=== PATIENT | female | born 1965 | race African-American/Black ===

== ENCOUNTER 2019-01-17 09:35 | Emergency (ER) | payer SELFPAY ==
[2019-01-17] MEDS ORDERED: NORMAL SALINE 1000 ML 1,000 ML IV ONE (09:53)
[2019-01-17] MEDS ORDERED: MORPHINE SULFATE 10 MG/ML INJ IV ONE (09:53)
[2019-01-17] MEDS ORDERED: ONDANSETRON HCL INJ/PF 4 MG/2 ML SDV IV ONE (09:53)
--- NOTE | 2019-01-17 09:54 | ER Document Report ---
ED Medical Screen (RME) - General Chief Complaint: Abdominal Pain Stated Complaint: ABNOMINAL PAIN Time Seen by Provider: 01/17/19 09:50 Mode of Arrival: Ambulatory Information source: Patient Notes: Patient is a 54-year-old female presenting to the emergency department with 3- day history of left-sided abdominal pain, fevers and nausea. Patient denies any diarrhea or dysuria. Patient has not had symptoms similar to this in the past. Exam: Tenderness to palpation to left side of abdomen and both left upper and left lower quadrants. I have greeted and performed a rapid initial assessment of this patient. A comprehensive ED assessment and evaluation of the patient, analysis of test results and completion of the medical decision making process will be conducted by additional ED providers. I have specifically instructed the patient or family members with the patient to immediately return to any nursing staff should anything change in the patient's condition or with their chief complaint. This medical record was dictated with voice recognizing software. There may be grammatical, syntax errors that are unintended. - Related Data Allergies/Adverse Reactions: Penicillins Allergy (Verified 01/17/19 09:38) Physical Exam - Vital signs Vitals: Temp Pulse Resp BP Pulse Ox 101.9 F H 114 H 20 139/86 H 97 01/17/19 09:40 01/17/19 09:40 01/17/19 09:40 01/17/19 09:40 01/17/19 09:40 Course - Vital Signs Vital signs: Temp Pulse Resp BP Pulse Ox 101.9 F H 114 H 20 139/86 H 97 01/17/19 09:40 01/17/19 09:40 01/17/19 09:40 01/17/19 09:40 01/17/19 09:40
[2019-01-17] MEDS ORDERED: KETOROLAC TROMETHAMINE INJ/PF 30 MG/1 ML SDV IV ONE (10:26)
[2019-01-17 10:32] LABS: ABSOLUTE LYMPHOCYTES (AUTO) 1.5 10^3/uL (0.5-4.7); ABSOLUTE MONOCYTES (AUTO) 1.4 10^3/uL (0.1-1.4); ABSOLUTE NEUT (AUTO) 15.8 10^3/uL (1.7-8.2); BASOPHILS % (AUTO) 0.2 % (0-2); EOSINOPHILS % (AUTO) 0.1 % (0-6); HEMATOCRIT 38.7 % (36.0-47.0); HEMOGLOBIN 12.6 g/dL (12.0-15.5); LYMPHOCYTES % (AUTO) 7.9 % (13-45); MEAN CORPUSCULAR HEMOGLOBIN 26.7 pg (27.0-33.4); MEAN CORPUSCULAR HGB CONC 32.5 g/dL (32.0-36.0); MEAN CORPUSCULAR VOLUME 82 fl (80-97); MONOCYTES % (AUTO) 7.2 % (3-13); PLATELET COUNT 255 10^3/uL (150-450); RED CELL DISTRIBUTION WIDTH 13.8 % (11.5-14.0); SEGMENTED NEUTROPHILS % (AUTO) 84.6 % (42-78); TOTAL CELLS COUNTED % (AUTO) 100 %; WHITE BLOOD COUNT 18.7 10^3/uL (4.0-10.5)
--- NOTE | 2019-01-17 10:59 | ER Document Report ---
ED General - General Chief Complaint: Abdominal Pain Stated Complaint: ABNOMINAL PAIN Time Seen by Provider: 01/17/19 09:50 Mode of Arrival: Ambulatory - HPI Notes: Patient presents with fever and left lower quadrant nonradiating abdominal pain since Sunday of this week. No known medical problems does not take any medications on a daily basis. Has been intermittent nausea but no vomiting or diarrhea with normal bowel movements. No abnormal vaginal discharge or concerns for vaginal infection. Has not ever had the symptoms in the past. - Related Data Allergies/Adverse Reactions: Penicillins Allergy (Verified 01/17/19 09:38) Past Medical History - General Information source: Patient - Social History Smoking Status: Never Smoker Family History: None Patient has suicidal ideation: No Patient has homicidal ideation: No Past Surgical History: Reports: Hx Appendectomy Review of Systems - Review of Systems Constitutional: No symptoms reported EENT: No symptoms reported Cardiovascular: No symptoms reported Respiratory: No symptoms reported Gastrointestinal: See HPI Genitourinary: No symptoms reported Female Genitourinary: No symptoms reported Musculoskeletal: No symptoms reported Skin: No symptoms reported Hematologic/Lymphatic: No symptoms reported Neurological/Psychological: No symptoms reported Physical Exam - Vital signs Vitals: Temp Pulse Resp BP Pulse Ox 101.9 F H 114 H 20 139/86 H 97 01/17/19 09:40 01/17/19 09:40 01/17/19 09:40 01/17/19 09:40 01/17/19 09:40 - General General appearance: Appears well, Alert, Other - Fever - HEENT Head: Normocephalic, Atraumatic - Respiratory Respiratory status: No respiratory distress, Tripod position Breath sounds: Normal - Cardiovascular Rhythm: Regular, Tachycardia Heart sounds: Normal auscultation Murmur: No - Abdominal Inspection: Normal Distension: No distension Bowel sounds: Normal Tenderness: Other - Tenderness to palpation of left lower quadrant - Back Back: Normal, Nontender - Extremities General upper extremity: Normal strength General lower extremity: Normal strength Course - Re-evaluation Re-evalutation: 01/17/19 12:25 CT shows evidence of pyelonephritis. Patient well-appearing with normal lactic acid. She does have a serum leukocytosis. Zosyn was hung in the emergency department prior to CT scan. Patient is tolerating p.o. has not had any vomiting will provide nausea medication as well as 14 days of Bactrim. Her urine culture to ensure proper sensitivities. Strict return precautions provided the patient in regards to if she were to fail outpatient therapy to return immediately to the emergency department. Patient verbalized and agrees with plan - Vital Signs Vital signs: Temp Pulse Resp BP Pulse Ox 98.7 F 88 18 112/72 93 01/17/19 12:39 01/17/19 12:39 01/17/19 12:39 01/17/19 12:39 01/17/19 12:39 - Laboratory Result Diagrams: 01/17/19 10:15 01/17/19 10:15 Laboratory results interpreted by me: 01/17/19 01/17/19 01/17/19 10:15 10:15 10:47 WBC 18.7 H MCH 26.7 L Lymph % (Auto) 7.9 L Absolute Neuts (auto) 15.8 H Seg Neutrophils % 84.6 H Sodium 136.2 L Chloride 96 L Est GFR (MDRD) Non-Af 53 L Glucose 125 H Total Bilirubin 1.9 H Direct Bilirubin 0.5 H AST 103 H Alkaline Phosphatase 162 H Urine Protein 100 H Urine Ketones TRACE H Urine Blood LARGE H Urine Nitrite POSITIVE H Ur Leukocyte Esterase LARGE H Discharge - Discharge Clinical Impression: Pyelonephritis Condition: Good Disposition: HOME, SELF-CARE Instructions: Pyelonephritis (OM), Trimethoprim-Sulfa (OM) Prescriptions: Sulfamethoxazole/Trimethoprim [Bactrim Ds Tablet] 1 each PO BID #28 tablet Ondansetron [Zofran Odt 4 mg Tablet] 1 tab PO ASDIR PRN #15 tab.rapdis PRN Reason: For Nausea/Vomiting
[2019-01-17 11:00] LABS: ALBUMIN 4.4 g/dL (3.5-5.0); ALKALINE PHOSPHATASE 162 U/L (38-126); ANION GAP 12 (5-19); ASPARTATE AMINO TRANSFERASE 103 U/L (14-36); BILIRUBIN,DIRECT 0.5 mg/dL (0.0-0.4); BILIRUBIN,TOTAL 1.9 mg/dL (0.2-1.3); BLOOD UREA NITROGEN 12 mg/dL (7-20); CALCIUM 9.5 mg/dL (8.4-10.2); CARBON DIOXIDE 28 mmol/L (22-30); CHLORIDE 96 mmol/L (98-107); GLUCOSE 125 mg/dL (75-110); POTASSIUM 4.4 mmol/L (3.6-5.0); TOTAL PROTEIN 7.8 g/dL (6.3-8.2)
[2019-01-17] MEDS ORDERED: PIPERACILLIN/TAZOBACTAM 4.5 GM VIAL IV ONE (11:02)
[2019-01-17 11:18] LABS: APPEARANCE,URINE SLIGHTLY-CLOUDY; BILIRUBIN,URINE NEGATIVE (NEGATIVE); COLOR,URINE YELLOW; GLUCOSE, URINE NEGATIVE (NEGATIVE); KETONES,URINE TRACE mg/dL (NEGATIVE); LEUKOCYTE ESTERASE,URINE LARGE (NEGATIVE); NITRITE,URINE POSITIVE (NEGATIVE); PROTEIN,URINE 100 mg/dL (NEGATIVE); URINE SPECIFIC GRAVITY 1.009; UROBILINOGEN,URINE NEGATIVE mg/dL (<2.0)
--- NOTE | 2019-01-17 11:43 | RADIOLOGY REPORT (SQ) ---
EXAM DESCRIPTION: CT ABD/PELVIS WITH IV ONLY COMPLETED DATE/TIME: 01/17/2019 11:31 am REASON FOR STUDY: L quad pain COMPARISON: None. TECHNIQUE: CT scan of the abdomen and pelvis performed using helical scanning technique with dynamic intravenous contrast injection. No oral contrast. Images reviewed with lung, soft tissue, and bone windows. Reconstructed coronal and sagittal MPR images reviewed. Delayed images for evaluation of the urinary system also acquired. All images stored on PACS. All CT scanners at this facility use dose modulation, iterative reconstruction, and/or weight based d osing when appropriate to reduce radiation dose to as low as reasonably achievable (ALARA). [facility]: Dose Right [facility]: CareDose [facility]: Dose Right [facility]: Teradose 4D [facility]: [employer] CONTRAST TYPE AND DOSE: contrast/concentration: Isovue 350.00 mg/ml; Total Contrast Delivered: 71.0 ml; Total Saline Delivered: 66.0 ml RENAL FUNCTION: BUN 12, creatinine 1.07 RADIATION DOSE: CT Rad equipment meets quality standard of care and radiation dose reduction techniq ues were employed. CTDIvol: 6.0 - 7.9 mGy. DLP: 686 mGy-cm.. LIMITATIONS: None. FINDINGS: LOWER CHEST: No significant findings. No nodules or infiltrates. LIVER: Normal size. No masses. No dilated ducts. SPLEEN: Normal size. No focal lesions. PANCREAS: No masses. No significant calcifications. No adjacent inflammation or peripancreatic fluid collections. Pancreatic duct not dilated. GALLBLADDER: No identified stones by CT criteria. No inflammatory changes to suggest cholecystitis. ADRENAL GLANDS: No significant masses or asymmetry. RIGHT KIDNEY AND URETER: No solid masses. No significant calcifications. No hydronephrosis or hyd roureter. LEFT KIDNEY AND URETER: No solid masses. There is heterogeneous enhancement and attenuation with a f ocal rounded area of decreased attenuation on both the immediate and delayed images. This may repres ent focal pyelonephritis. No significant calcifications. No hydronephrosis or hydroureter. AORTA AND VESSELS: No aneurysm. No dissection. Renal arteries, SMA, celiac without stenosis. RETROPERITONEUM: No retroperitoneal adenopathy, hemorrhage or masses. BOWEL AND PERITONEAL CAVITY: No masses or inflammatory changes. No free fluid or peritoneal masses. APPENDIX: Surgically absent. PELVIS: There is a soft tissue mass in the left aspect of the pelvis most likely ovarian origin. Thi s measures 3.4 cm. There are uterine fibroids. No free fluid the pelvis. ABDOMINAL WALL: Small umbilical hernia containing omental fat only. BONES: No significant or acute findings. OTHER: No other significant finding. IMPRESSION: 1. Focal area of abnormal attenuation the left kidney suspect focal pyelonephritis. 2. 3.4 cm soft tissue mass in the left adnexa most likely ovarian in origin. Numerous uterine fibro ids. Correlation with pelvic ultrasound is recommended. TECHNICAL DOCUMENTATION: JOB ID: [id number] Quality ID # [id number]: Final reports with documentation of one or more dose reduction techniques (e.g., Au tomated exposure control, adjustment of the mA and/or kV according to patient size, use of iterative reconstruction technique) 2010 [employer]- All Rights Reserved Reading location - IP/workstation name: [email or web address]
[2019-01-17 12:41] VITALS: BP 112/72
== END 2019-01-17 13:32 | disposition home or self-care (01) ==
LOC: ER 09:35
DX: N12 Tubulo-interstitial nephritis, not specified as acute or chronic (principal); R50.9 Fever, unspecified; R10.32 Left lower quadrant pain; Z88.0 Allergy status to penicillin
CPT/HCPCS: 99284; 96361; 96375; 96365; 36415; 87040; 87086; 83690; 83735; 85025; 87077; 87088; 80053; 81001; 87186; 83605; 74177; J1885; J2270; J2405; J7030; J2543

== ENCOUNTER 2019-01-18 20:54 | Emergency (ER) | payer SELFPAY ==
[2019-01-19] MEDS ORDERED: CEFTRIAXONE 1 GM/D5W RTU 1 GM/50 ML RTUPB IV ONE (00:02)
[2019-01-19] MEDS ORDERED: ONDANSETRON HCL INJ/PF 4 MG/2 ML SDV IV ONE (00:03)
[2019-01-19] MEDS ORDERED: MORPHINE SULFATE 10 MG/ML INJ IV ONE (00:03)
[2019-01-19] MEDS ORDERED: RINGERS SOLUTION,LACTATED 1,000 ML IV ONE (00:04)
--- NOTE | 2019-01-19 00:17 | ER Document Report ---
ED General - General Chief Complaint: Abnormal Lab Results Stated Complaint: ABNORMAL LABS Time Seen by Provider: 01/18/19 23:48 Mode of Arrival: Ambulatory Information source: Patient, [facility] Records Cannot obtain history due to: Uncooperative Notes: 54-year-old female with no reported past medical history presents to the emergency department after being called by our facility for positive blood cultures and positive urine culture. Patient was seen yesterday and placed on Bactrim for pyelonephritis. Urine and blood cultures preliminarily show gram- negative rods. Patient reports that she has had nausea but no vomiting. She reports a temperature of 100.1 at home. Patient's left flank pain initially started 4 days prior to arrival. She denies dysuria, hematuria, vaginal discharge, diarrhe. TRAVEL OUTSIDE OF THE [place] IN LAST 30 DAYS: No - HPI Onset: Other Onset/Duration: Gradual, Persistent Quality of pain: Achy Severity: Mild Associated symptoms: Body/muscle aches, Fever, Nausea. denies: Chest pain, Nonproductive cough, Productive cough, Vomiting, Shortness of breath Exacerbated by: Denies Relieved by: Denies Similar symptoms previously: Yes Recently seen / treated by doctor: Yes - Related Data Allergies/Adverse Reactions: Penicillins Allergy (Verified 01/17/19 09:38) Past Medical History - General Information source: Patient - Social History Smoking Status: Never Smoker Frequency of alcohol use: Social Drug Abuse: None Lives with: Spouse/Significant other Family History: None Patient has suicidal ideation: No Patient has homicidal ideation: No - Medical History Medical History: Negative Past Surgical History: Reports: Hx Appendectomy, Hx Gynecologic Surgery - partial tubal due to ectopic Review of Systems - Review of Systems Notes: REVIEW OF SYSTEMS: CONSTITUTIONAL : + fever, chills, or sweats. + recent illness. Denies weight loss, recent hospitalizations. EENT: Denies visual changes, eye pain. Denies sore throat, oral lesions, difficulty swallowing. CARDIOVASCULAR: Denies chest pain. Denies palpitations. Denies lower extremity edema. RESPIRATORY: Denies cough. Denies shortness of breath, wheezing. GASTROINTESTINAL: Denies abdominal pain or distention. Denies vomiting, or diarrhea. Denies blood in vomitus, stools, or per rectum. Denies black, tarry stools. Denies constipation. GENITOURINARY: Denies difficulty urinating, painful urination, frequency, blood in urine, or vaginal discharge. MUSCULOSKELETAL: Denies neck pain or stiffness. Denies joint pain or swelling. SKIN: Denies rash, lesions or sores. HEMATOLOGIC : Denies easy bruising or bleeding. LYMPHATIC: Denies swollen glands. NEUROLOGICAL: Denies confusion or altered mental status. Denies loss of consciousness. Denies dizziness or lightheadedness. Denies headache. Denies weakness or paralysis. Denies problems difficulty with ambulation, slurred speech. Denies sensory loss, numbness, or tingling. Denies seizures. PSYCHIATRIC: Denies anxiety or stress. Denies depression, suicidal ideation, or homicidal ideation. Denies visual or auditory hallucinations. Physical Exam - Vital signs Vitals: Temp Pulse Resp BP Pulse Ox 98.4 F 85 18 142/87 H 98 01/18/19 21:10 01/18/19 21:10 01/18/19 21:10 01/18/19 21:10 01/18/19 21:10 - Notes Notes: PHYSICAL EXAMINATION: GENERAL: Well-appearing, well-nourished and in no acute distress. HEAD: Atraumatic, normocephalic. EYES: Pupils equal round and reactive to light, extraocular movements intact, conjunctiva are normal. ENT: Nares patent, oropharynx clear without exudates. Moist mucous membranes. NECK: Normal range of motion, supple without lymphadenopathy LUNGS: Breath sounds clear to auscultation bilaterally and equal. No wheezes rales or rhonchi. HEART: Regular rate and rhythm without murmurs ABDOMEN: Soft, nontender, nondistended abdomen. No guarding, no rebound. No masses appreciated. Left CVA tenderness Female : deferred Musculoskeletal: Normal range of motion, no pitting or edema. No cyanosis. NEUROLOGICAL: Cranial nerves grossly intact. Normal speech, normal gait. Normal sensory, motor exams PSYCH: Normal mood, normal affect. SKIN: Warm, Dry, normal turgor, no rashes or lesions noted. Course - Re-evaluation Re-evalutation: 01/19/19 07:06 Laboratory 01/19/19 01/19/19 01/19/19 00:15 00:15 00:34 WBC 8.4 RBC 4.38 Hgb 11.7 L Hct 35.7 L MCV 82 MCH 26.8 L MCHC 32.9 RDW 14.1 H Plt Count 220 Lymph % (Auto) 17.5 [place] % (Auto) 11.0 Eos % (Auto) 1.2 Baso % (Auto) 0.3 Absolute Neuts (auto) 5.9 Absolute Lymphs (auto) 1.5 Absolute Monos (auto) 0.9 Absolute Eos (auto) 0.1 Absolute Basos (auto) 0.0 Seg Neutrophils % 70.0 Sodium 139.3 Potassium 4.0 Chloride 104 Carbon Dioxide 24 Anion Gap 11 BUN 9 Creatinine 1.05 Est GFR ( Amer) > 60 Est GFR (MDRD) Non-Af 54 L Glucose 114 H Calcium 9.1 Total Bilirubin 1.3 Direct Bilirubin 0.8 H Neonat Total Bilirubin Not Reportable Neonat Direct Bilirubin Not Reportable Neonat Indirect Bili Not Reportable AST 64 H ALT 76 Alkaline Phosphatase 303 H Total Protein 6.7 Albumin 3.7 Urine Color YELLOW Urine Appearance CLEAR Urine pH 6.0 Ur Specific [place] 1.003 Urine Protein NEGATIVE Urine Glucose (UA) NEGATIVE Urine Ketones TRACE H Urine Blood MODERATE H Urine Nitrite NEGATIVE Urine Bilirubin NEGATIVE Urine Urobilinogen NEGATIVE Ur Leukocyte Esterase SMALL H Urine WBC (Auto) 8 Urine RBC (Auto) 2 Urine Bacteria (Auto) TRACE Squamous Epi Cells Auto 1 Urine Ascorbic Acid NEGATIVE Temp Pulse Resp BP Pulse Ox 98.4 F 79 16 129/67 H 98 01/18/19 21:10 01/19/19 02:36 01/19/19 02:36 01/19/19 02:36 01/19/19 02:36 01/19/19 07:09 ED Course History: Patient returned to the emergency department after preliminary blood cultures obtained yesterday showed gram- negative rods in both the patient blood and urine. Patient reports having been able to tolerate her Bactrim and reports completing 3 doses since discharge yesterday. Also reports low-grade temperature which she treated with Tylenol. Patient evaluated. Vital signs were reviewed. Patient is afebrile, normotensive.Patient does not appear toxic or dehydrated they are in no acuted distress. Previous medical records and nursing notes reviewed. Exam Findings: Mild CVA tenderness. Benign abdominal exam. Nontoxic-appearing patient. Afebrile without vomiting. Lab Findings: CBC shows a significant improvement of her leukocytosis. Patient had a white count of 18.4 yesterday which has decreased down to 8. Patient's urinalysis today shows significant improvement with small leukoesterase and 8 WBCs compared to the urinalysis obtained yesterday which showed large leukoesterase and over 100 WBCs. Urine and blood cultures were obtained again and pending. Patient Interventions/Monitor: IV fluids, IV ceftriaxone, Zofran, morphine. Revaluation: Patient reports feeling significantly better. Since the patient has had significant improvement on Bactrim I will advise her to continue her already prescribed Bactrim. MDM: Continue Bactrim as previously prescribed. At this point I do not feel the patient needs admission to the hospital as she is not having any vomiting and has had significant improvement in her laboratory testing. I did provide the patient a prescription for promethazine as she reports the Zofran she was prescribed causes her headaches. Patient advised to return if she has a fever greater than 101, develops persistent vomiting or for any other symptoms that are concerning to her. Disposition: patient was evaluated and treated as appropriate for the patient's presenting symptoms and complaint, with consideration of any critical or life threatening conditions that may be associated with their obtained history and exam as noted above. All results were discussed with patient and her who was at the bedside. Patient provided the opportunity to ask questions, and express concerns. Patient was educated on treatments based on their presumed diagnosis as noted above. At this time we will discharge the patient with return precautions and follow-up recommendations. Verbal discharge instructions given a the bedside. Medication warnings reviewed. Patient is in agreement with this plan and has verbalized understanding of return precautions. After careful consideration I feel that that patient can be safely discharged from the emergency department, they were advised to followup with a primary care physician in 2-3 days. Dictation on this chart was performed using voice recognition software and may result in unintended grammatical, spelling, syntax or errors. - Vital Signs Vital signs: Temp Pulse Resp BP Pulse Ox 98.4 F 79 16 129/67 H 98 01/18/19 21:10 01/19/19 02:36 01/19/19 02:36 01/19/19 02:36 01/19/19 02:36 - Laboratory Result Diagrams: 01/19/19 00:15 01/19/19 00:15 Laboratory results interpreted by me: 09/01/19 09/01/19 09/01/19 00:15 00:15 00:34 Hgb 11.7 L Hct 35.7 L MCH 26.8 L RDW 14.1 H Est GFR (MDRD) Non-Af 54 L Glucose 114 H Direct Bilirubin 0.8 H AST 64 H Alkaline Phosphatase 303 H Urine Ketones TRACE H Urine Blood MODERATE H Ur Leukocyte Esterase SMALL H Discharge - Discharge Clinical Impression: Pyelonephritis Urinary tract infection Qualifiers: Urinary tract infection type: site unspecified Hematuria presence: with hematuria Qualified Code(s): N39.0 - Urinary tract infection, site not specified Condition: Good Disposition: HOME, SELF-CARE Instructions: Antibiotic Therapy ([facility]), Antinausea Medication ([facility]), Pyelonephritis ([facility]), Rocephin ([facility]), Toradol Injection ([facility]), Urinary Tract Infection ([facility]) Additional Instructions: Your urine shows findings consistent with a urinary tract infection. Please take all the antibiotics as directed even if your symptoms have improved. Please follow-up with your primary care physician as needed. Return to emergency room if you develop fever >101F, persistent vomiting, become lethargic, have severe pain in your sides, or any other symptoms that are concerning to you. Recommendations: It is recommended to followup with a primary care doctor within the next 2 days. If you do not have a primary care doctor or you are unable to get an apointment during that time, I left the number for some internal medicine physicians that are affiliated with this [facility]. Dr. Isaak Abraham [address], [place] [address] [phone] Dr Brewer Address: [address] [place] [address] [place] [address] Dr Maurer Address: [address] [place] [address] [place] [address] Prescriptions: Promethazine HCl [Phenergan 25 mg Tablet] 25 mg PO Q8H PRN #12 tablet PRN Reason: For Nausea/Vomiting Forms: Elevated Blood Pressure
[2019-01-19 00:26] LABS: ABSOLUTE EOSINOPHILS # (AUTO) 0.1 10^3/uL (0.0-0.6); ABSOLUTE LYMPHOCYTES (AUTO) 1.5 10^3/uL (0.5-4.7); ABSOLUTE MONOCYTES (AUTO) 0.9 10^3/uL (0.1-1.4); ABSOLUTE NEUT (AUTO) 5.9 10^3/uL (1.7-8.2); BASOPHILS % (AUTO) 0.3 % (0-2); EOSINOPHILS % (AUTO) 1.2 % (0-6); HEMATOCRIT 35.7 % (36.0-47.0); HEMOGLOBIN 11.7 g/dL (12.0-15.5); LYMPHOCYTES % (AUTO) 17.5 % (13-45); MEAN CORPUSCULAR HEMOGLOBIN 26.8 pg (27.0-33.4); MEAN CORPUSCULAR HGB CONC 32.9 g/dL (32.0-36.0); MEAN CORPUSCULAR VOLUME 82 fl (80-97); PLATELET COUNT 220 10^3/uL (150-450); RED BLOOD COUNT 4.38 10^6/uL (3.72-5.28); RED CELL DISTRIBUTION WIDTH 14.1 % (11.5-14.0); TOTAL CELLS COUNTED % (AUTO) 100 %; WHITE BLOOD COUNT 8.4 10^3/uL (4.0-10.5)
[2019-01-19 00:54] LABS: ALBUMIN 3.7 g/dL (3.5-5.0); ALKALINE PHOSPHATASE 303 U/L (38-126); ANION GAP 11 (5-19); ASPARTATE AMINO TRANSFERASE 64 U/L (14-36); BILIRUBIN,DIRECT 0.8 mg/dL (0.0-0.4); BILIRUBIN,TOTAL 1.3 mg/dL (0.2-1.3); BLOOD UREA NITROGEN 9 mg/dL (7-20); CALCIUM 9.1 mg/dL (8.4-10.2); CARBON DIOXIDE 24 mmol/L (22-30); CHLORIDE 104 mmol/L (98-107); GLUCOSE 114 mg/dL (75-110); TOTAL PROTEIN 6.7 g/dL (6.3-8.2)
[2019-01-19 01:25] LABS: APPEARANCE,URINE CLEAR; BILIRUBIN,URINE NEGATIVE (NEGATIVE); COLOR,URINE YELLOW; GLUCOSE, URINE NEGATIVE (NEGATIVE); KETONES,URINE TRACE mg/dL (NEGATIVE); LEUKOCYTE ESTERASE,URINE SMALL (NEGATIVE); NITRITE,URINE NEGATIVE (NEGATIVE); PROTEIN,URINE NEGATIVE (NEGATIVE); URINE SPECIFIC GRAVITY 1.003; UROBILINOGEN,URINE NEGATIVE mg/dL (<2.0)
[2019-01-19] MEDS ORDERED: KETOROLAC TROMETHAMINE INJ/PF 30 MG/1 ML SDV IV ONE (02:12)
[2019-01-19] MEDS ORDERED: HYDROCODONE/ACETAMINOPHEN 5-325 MG (6 TAB/ER DISP) PO PRN (02:13)
[2019-01-19 02:36] VITALS: BP 129/67
== END 2019-01-19 02:34 | disposition home or self-care (01) ==
LOC: ER 20:54
DX: N12 Tubulo-interstitial nephritis, not specified as acute or chronic (principal); N39.0 Urinary tract infection, site not specified; R50.9 Fever, unspecified; R11.2 Nausea with vomiting, unspecified; R10.9 Unspecified abdominal pain; M79.10 Myalgia, unspecified site; R05 Cough; R06.02 Shortness of breath
CPT/HCPCS: 99283; 96361; 96375; 96365; 36415; 87040; 87086; 85025; 80053; 81001; J1885; J2270; J2405; J7120; J0696